=== PATIENT | female | born 1995 | race Caucasian/White ===

== ENCOUNTER 2016-12-31 09:50 | Emergency (ER) | payer SELFPAY ==
[~2016-12-31] VITALS: Ht 172.7 cm; Wt 63.5 kg
[~2016-12-31 09:50] MED LIST: BACL10TA PO; DICL75 PO
[2016-12-31 09:54] VITALS: BP 118/80; PULSE 110; RESP 16; TEMP 98.1; O2SAT 99
--- NOTE | 2016-12-31 10:11 | PD ---
HPI Chief Complaint: GI Complaint Time Seen by Provider: 10:04 Travel History International Travel<30 days: No Contact w/Intl Traveler<30days: No Traveled to known affect area: No History of Present Illness HPI Healthy 21-year-old female here with complaint of STD exposure. Patient states that her boyfriend was seen here in our emergency department yesterday and tested positive for gonorrhea. She believes she is been exposed. Since she found out that she is been exposed to gonorrhea, she has been having some abdominal pain. This is in the epigastrium. She felt warm overnight but no documented fevers. No nausea or vomiting. No pelvic pain or abnormal vaginal discharge. PFSH Past Medical History Medical History: Denies Significant Hx ?: Not LMP: 11/2016 Past Surgical History Surgical History: No Previous Surgery Social History Alcohol Use: Yes (5 DAYS PER WK) Tobacco Use: Yes (4 CIGS PER DAY) Substance Use: No Allergies-Medications (Allergen,Severity, Reaction): Coded Allergies: No Known Allergies (Unverified , 12/31/16) Reported Meds & Prescriptions Reported Meds & Active Scripts Active No Active Prescriptions or Reported Medications Review of Systems Except as stated in HPI: all other systems reviewed are Neg Physical Exam Narrative GENERAL: Well-appearing female in no acute distress SKIN: Focused skin assessment warm/dry. HEAD: Normocephalic. EYES: No scleral icterus. No injection or drainage. ENT: Mucous membranes pink and moist. NECK: Supple CARDIOVASCULAR: Borderline tachycardia, normalized upon recheck. RESPIRATORY: No accessory muscle use. GASTROINTESTINAL: Abdomen soft, non-tender, nondistended. MUSCULOSKELETAL: normal gait NEUROLOGICAL: Awake and alert. Normal speech. PSYCHIATRIC: Appropriate mood and affect; insight and judgment normal. Data Data Last Documented VS Vital Signs Date Time Temp Pulse Resp B/P Pulse Ox O2 Delivery O2 Flow Rate FiO2 12/31/16 09:54 98.1 110 16 118/80 99 Room Air Orders Azithromycin Powd Pack (Zithromax Powd P (12/31/16 10:15) Ceftriaxone Inj (Rocephin Inj) (12/31/16 10:15) Lidocaine 1% Inj (50 Ml) (Xylocaine 1% I (12/31/16 10:15) MDM Medical Decision Making Medical Screen Exam Complete: Yes Emergency Medical Condition: Yes Medical Record Reviewed: Yes Differential Diagnosis 21-year-old female here with complaint of STD exposure, known positive exposure to gonorrhea. Patient is really asymptomatic but will be treated empirically for GC and Chlamydia exposure. She was encouraged to follow up with primary care [facility] for full STD testing. Narrative Course Patient given Rocephin, azithromycin Diagnosis Primary Impression: STD exposure Referrals: Primary Care Physician call for appointment [facility] call for appointment Patient Instructions: General Instructions, Safe Sex (ED), Sexually Transmitted Diseases (ED) Additional Instructions: Follow-up with [facility] or primary care provider for full STD testing as discussed. Med/Other Pt SpecificInfo: No Change to Meds Scripts No Active Prescriptions or Reported Meds Disposition: 01 DISCHARGE HOME Condition: Stable Christine Tolentino MD Dec 31, 2016 10:11
[2016-12-31] MEDS ORDERED: cefTRIAXone 250 MG VIAL IM ONE (10:15)
[2016-12-31] MEDS ORDERED: LIDOCAINE HCL 1% 50 ML VIAL IM ONE (10:15)
[2016-12-31] MEDS ORDERED: AZITHROMYCIN PWD FOR SUSP 1 GM PACKET PO ONE (10:15)
[2016-12-31 10:16] VITALS: PULSE 91
== END 2016-12-31 11:00 | disposition home or self-care (01) ==
LOC: NEPD 09:50
DX: Z20.2 Contact with and (suspected) exposure to infections with a predominantly sexual mode of transmission (principal); F17.210 Nicotine dependence, cigarettes, uncomplicated; R00.0 Tachycardia, unspecified
CPT/HCPCS: 96372; 99283; J0696